=== PATIENT | male | born 1970 | race Hispanic/Latino ===

== ENCOUNTER 2016-07-24 23:54 | Emergency (ER) | payer OTHER ==
[2016-07-25 00:04] VITALS: RESP 16; TEMP 97.7
--- NOTE | 2016-07-25 00:49 | C.PDOC ---
History Of Present Illness 45 yo male w/o significant PMHx come in for evaluation of head injury sustained early today around 10:30 PM. pt reports, " was hit with soft ball to Left ear area". Pt admits, felt slightly dizzy right after the accident. Otherwise, pt denies LOC, syncope, denies worse headache of life, visual changes, focal deficits, denies any other active complaints or related injury. Pt admits, took few advils [employer]. At the time of evaluation, ambulatory in ED with stable gait, AAO#3, not in any apparent distress. - HPI Time Seen by Provider: 07/25/16 00:13 Chief Complaint (Nursing): Trauma History Per: Patient Onset/Duration Of Symptoms: Hrs Past Medical History Reviewed: Historical Data, Nursing Documentation, Vital Signs Vital Signs: Last Vital Signs Temp 97.7 F 07/25/16 00:00 Pulse 74 07/25/16 00:57 Resp 16 07/25/16 00:57 BP 118/72 07/25/16 00:57 Pulse Ox 98 07/25/16 00:57 - Medical History PMH: No Chronic Diseases Surgical History: No Surg Hx Family History: States: No Known Family Hx - Social History Hx Alcohol Use: Yes Hx Substance Use: No - Immunization History Hx Tetanus Toxoid Vaccination: No Hx Influenza Vaccination: No Hx Pneumococcal Vaccination: No Review Of Systems Except As Marked, All Systems Reviewed And Found Negative. Constitutional: Negative for: Fever, Chills Eyes: Negative for: Vision Change ENT: Negative for: Ear Pain, Ear Discharge, Throat Pain Cardiovascular: Negative for: Chest Pain, Palpitations Respiratory: Negative for: Cough, Shortness of Breath Gastrointestinal: Negative for: Nausea, Vomiting, Abdominal Pain, Diarrhea Genitourinary: Negative for: Dysuria, Frequency Musculoskeletal: Negative for: Neck Pain, Back Pain Neurological: Positive for: Headache. Negative for: Weakness, Numbness, Altered Mental Status, Dizziness Physical Exam - Physical Exam Appears: Well, Non-toxic, No Acute Distress Skin: Normal Color, Warm, Dry, No Rash, No Ecchymosis Head: Atraumatic, Normacephalic Eye(s): bilateral: Normal Inspection, PERRL, EOMI Ear(s): Left: TM Erythema, Other (mild erythema,edema and tenderness ofLeft superior helix c/w contusion, no open wound, no palpable defomrity. NO mastoid tenderness or palpable deformity.), Right: TM Erythema Nose: Normal, No Discharge Oral Mucosa: Moist, No Drooling, No Trismus Tongue: Normal Appearing, No Lesions Lips: Normal Appearing, No Contusion Throat: Normal Neck: Normal ROM, Trachea Midline, No Midline Cervical Tenderness, No Paracervical Tenderness, No Step Off Deformity, Supple Chest: Symmetrical, No Deformity, No Tenderness Cardiovascular: Rhythm Regular Respiratory: No Decreased Breath Sounds, No Accessory Muscle Use, No Stridor, No Wheezing Gastrointestinal/Abdominal: Soft, No Tenderness, No Distention, No Guarding Back: Normal Inspection, No Vertebral Tenderness Extremity: Normal ROM, No Deformity Neurological/Psych: Oriented x3, Normal Speech, Normal Cognition, Normal Cranial Nerves, Cerebellar Signs, Normal Motor, Normal Sensation, Normal Reflexes ED Course And Treatment O2 Sat by Pulse Oximetry: 99 Pulse Ox Interpretation: Normal Progress Note: On re-evaluation, pt is afebrile, hemodynamicaly stable. Non- toxic. AMbulatory in ED with stable gait. head: AT/NC, conusion to Left extarnal ear noted. No palpable deformity. neck: (-) midline tenderness. Neurologicaly intact. Imaging of head offered. Risc over benefits of CT imaging , radiation exposure discussed, pt refused imaging at present time. Pt advised OBS 48 hrs for any sign of head injury-return to ED immediately fi any new changes. Ref. to F/U with PMD in 2-3 days for re-eavl. Pt understand and agrees with discharges. Disposition Counseled Patient/Family Regarding: Diagnosis, Need For Followup - Disposition Referrals: Jeremy Blake MD [Medical Doctor] - Disposition: HOME/ ROUTINE Disposition Time: 00:45 Condition: STABLE Additional Instructions: OBSERVE 48 HRS FORA [place] SIGN OF HEAD INJURY-INTRACTABLE HEADACHE, VOMITING, VISUAL CHANGES, WEAKNESS, LETHARGY OR ANY OTHER NEW CHANGES-RETURN TO ED IMMEDIATELY FOR RE-EVALUATION. TYLENOL FOR HEADACHE NEED FOLLOW UP WITH PMD IN 1-2 DAYS FOR RE-EVALUATION. Instructions: Head Injury (ED) - Clinical Impression Clinical Impression: Head injury
[2016-07-25 01:00] VITALS: BP 118/72; PULSE 74
[2016-07-25 06:00] VITALS: O2SAT 99
== END 2016-07-25 00:57 | disposition home or self-care (01) ==
LOC: C.ER 23:54
DX: S09.90XA Unspecified injury of head, initial encounter (principal); W21.07XA Struck by softball, initial encounter; Y93.64 Activity, baseball; Y92.89 Other specified places as the place of occurrence of the external cause